=== PATIENT | male | born 1940 | race Caucasian/White ===

== ENCOUNTER 2019-12-24 12:38 | Inpatient (IN) | payer MEDICARE, OTHER ==
[~2019-12-24] VITALS: Ht 185.4 cm; Wt 122.1 kg
[2019-12-24] MEDS ORDERED: FUROSEMIDE 40 MG/4 ML VIAL IV ONE (13:00)
[2019-12-24 13:44] LABS: Basophils # (auto) 0 10 ^3/uL (0-0.2); Basophils % (auto) 0.4 % (0.0-2.0); Eosinophils # (auto) 0 10 ^3/uL (0-0.8); Eosinophils % (auto) 0.5 % (0.0-7.0); Hematocrit 33.2 % (41.0-53.0); Hemoglobin 10.8 g/dL (13.5-17.5); Lymphocytes % (auto) 10.5 % (10.0-50.0); Mean Corpuscular Hemoglobin 28.8 pg (28.0-32.0); Mean Corpuscular Hgb Conc. 32.6 g/dL (32.0-36.0); Mean Corpuscular Volume 88.2 fL (80.0-100.0); Monocytes # (auto) 0.4 10 ^3/uL (0-1.3); Monocytes % (auto) 4.4 % (0.0-12.0); Neutrophils # (auto) 7.9 10 ^3/uL (1.6-8.6); Neutrophils % (auto) 84.2 % (37.0-80.0); Platelet Count (auto) 267 10^3/uL (140-450); Red Blood Cells 3.77 10^6/uL (4.5-5.90); Red Cell Distribution Width 19.5 % (11.8-14.3); White Blood Cell 9.4 10^3/uL (4.4-10.8)
[2019-12-24 13:59] LABS: INR 1.03 (0.9-1.15); Partial Thromboplastin Time 28.6 sec (23.0-31.2)
[2019-12-24 14:48] LABS: Albumin 3.4 g/dL (3.4-5.0); Anion Gap 7 (5-15); Blood Urea Nitrogen 29 mg/dL (7-18); Calcium 8.8 mg/dL (8.5-10.1); Carbon Dioxide 31 mmol/L (21-32); Chloride 101 mmol/L (98-107); Glucose 136 mg/dL (74-106); Magnesium 2.9 mg/dL (1.6-2.6); Potassium 4.7 mmol/L (3.5-5.1); Sodium 139 mmol/L (136-145)
[2019-12-24 14:55] LABS: Alanine Aminotransferase 12 U/L (16-61); Alkaline Phosphatase 54 U/L (45-117); Aspartate Aminotransferase 11 U/L (15-37); BUN/Creatinine Ratio 23.8; Bilirubin, Total 0.5 mg/dL (0.2-1.0); GFR African American 74 mL/min; GFR Non-African American 61 mL/min; Total Protein 6.8 g/dL (6.4-8.2)
[2019-12-24 16:06] LABS: Urine Bacteria FEW /hpf (None Seen); Urine Blood Negative /uL (Negative); Urine Hyaline Cast FEW /lpf (0 - 2); Urine WBC 170 /hpf (0 - 3); Urine WBC Clumps PRESENT /hpf (None Seen)
[2019-12-24] MEDS: ACCU-CHEK COMFORT CURVE STRIP VI SCH ×2 (17:00→21:45)
[2019-12-24] MEDS ORDERED: NITROGLYCERIN 0.4 MG SL TAB SL PRN (17:00)
[2019-12-24] MEDS ORDERED: DEXTROSE (50%) 50ML SYRG IV PRN (17:00)
[2019-12-24] MEDS: InsuLIN REG 1unit/0.01ml Soln (100units/ml) SC SCH ×2 (17:00→22:10)
[2019-12-24] MEDS ORDERED: MORPHINE SULF INJ 2 MG/ML SYRINGE 1ML IV PRN (17:00)
[2019-12-24] MEDS ORDERED: FUROSEMIDE 100 MG/10ML VIAL IV SCH (18:00)
--- NOTE | 2019-12-24 19:30 | NUR ---
Spoke to MD Mauricio (administration manager for [facility]ER[facility]) regarding patient not having diet order. forwarded to MD Mcqueen, MD Mcqueen advised is not on at this time and to call MD Mauricio. Spoke to MD Mauricio and she provided new order: cardiac diet now and NPO after midnight, read back and confirmed with MD Mauricio. Addendum: 12/25/19 at 0145 by Nuno Lange RN Per Hang, patient is NPO for possible cardiac procedure.
--- NOTE | 2019-12-24 19:45 | NUR ---
Telemetry admit from ER PIPPAMIRIAM admitted to Telemetry unit after SBAR received from Kika KELLER. Patient oriented to Nuno quintanilla RN, central unit, 222 room, B bed, and unit policies regarding patient care and visiting hours. Patient now on continuous telemetry monitoring, tele box #30 and telemetry reading on arrival to unit is sinus rhythm. Patient placed on bedside oxygen, weighed by bedscale and encouraged to call if they need something. All questions and concerns addressed, patient verbalized understanding.
[2019-12-24] MEDS ORDERED: AMLO5TAB15 PO (20:45)
[2019-12-24] MEDS ORDERED: PRE1T PO (20:45)
[2019-12-24] MEDS ORDERED: GABA-339 PO (20:45)
[2019-12-24] MEDS ORDERED: FURO40TA4 PO (20:45)
[2019-12-24] MEDS ORDERED: CARV12.544 PO (20:45)
[2019-12-24] MEDS ORDERED: ALLO300T2 PO (20:45)
[2019-12-24] MEDS ORDERED: POTA10TA51 PO (20:45)
[2019-12-24] MEDS ORDERED: LORazepam 2MG/ML-1ML VIAL IV ONE (21:15)
[2019-12-24] MEDS: ALLOPURINOL 300 MG TAB PO SCH (21:31)
[2019-12-24] MEDS: GABAPENTIN 300 MG CAP PO SCH (21:32)
[2019-12-24 22:00] VITALS: BP 156/71
[2019-12-24] MEDS ORDERED: POTASSIUM CHL 20 Meq TABLET PO SCH (22:00)
[2019-12-25 05:50] VITALS: BP 130/60
[2019-12-25] MEDS: GABAPENTIN 300 MG CAP PO SCH ×3 (06:00→20:57)
[2019-12-25] MEDS: InsuLIN REG 1unit/0.01ml Soln (100units/ml) SC SCH ×4 (06:33→21:36)
[2019-12-25] MEDS: ACCU-CHEK COMFORT CURVE STRIP VI SCH ×4 (06:33→21:36)
[2019-12-25] MEDS: predniSONE 1 MG TAB PO SCH (06:35)
[2019-12-25 06:36] LABS: Basophils # (auto) 0 10 ^3/uL (0-0.2); Basophils % (auto) 0.5 % (0.0-2.0); Eosinophils # (auto) 0.1 10 ^3/uL (0-0.8); Eosinophils % (auto) 1.3 % (0.0-7.0); Hematocrit 30.5 % (41.0-53.0); Hemoglobin 9.9 g/dL (13.5-17.5); Lymphocytes # (auto) 1.4 10 ^3/uL (0.4-5.4); Mean Corpuscular Hemoglobin 28.6 pg (28.0-32.0); Mean Corpuscular Hgb Conc. 32.4 g/dL (32.0-36.0); Mean Corpuscular Volume 88.2 fL (80.0-100.0); Monocytes # (auto) 0.7 10 ^3/uL (0-1.3); Monocytes % (auto) 8.9 % (0.0-12.0); Neutrophils # (auto) 5.8 10 ^3/uL (1.6-8.6); Neutrophils % (auto) 72.3 % (37.0-80.0); Platelet Count (auto) 249 10^3/uL (140-450); Red Blood Cells 3.45 10^6/uL (4.5-5.90); Red Cell Distribution Width 19.3 % (11.8-14.3)
--- NOTE | 2019-12-25 07:43 | NUR ---
Opening Shift Note Assumed patient care from NOC RN, Nuno. Patient currently sitting up in bed, no signs of distress this time. Will continue to monitor q1hr and PRN.
--- NOTE | 2019-12-25 07:52 | NUR ---
provided report to day rn. patient is resting in bed with no signs of distress at this time.
--- NOTE | 2019-12-25 08:34 | NUR ---
at Bedside Dr. Castro at bedside, new orders received. Addendum: 12/25/19 at 1434 by SHAN SANCHEZ RN RN Per Dr. Castro: per Dr. Galan, no Lasix at this time
--- NOTE | 2019-12-25 08:54 | NUR ---
Left Message for Left message for Dr. Castro regarding patient's CT scan. Patient states "I don't do good with the machine if you don't give me something for anxiety." Patient currently refusing unless he receives medication. Addendum: 12/25/19 at 0900 by SHAN SANCHEZ RN RN Message left with Patient ( answering service).
[2019-12-25 09:07] VITALS: BP 159/62
--- NOTE | 2019-12-25 09:11 | NUR ---
Called Received return call from Dr. Castro. New orders received.
[2019-12-25] MEDS ORDERED: LORazepam 2MG/ML-1ML VIAL IV ONE (09:15)
[2019-12-25] MEDS: ALLOPURINOL 300 MG TAB PO SCH ×2 (11:05→20:57)
[2019-12-25] MEDS: amLODIPine BESYLATE 5 MG TAB PO SCH (11:05)
[2019-12-25] MEDS: CARVEDILOL 12.5 MG TAB PO SCH ×2 (11:05→20:58)
--- NOTE | 2019-12-25 11:25 | NUR ---
WOUND CARE NOTE: Wound care in to see patient per wound care request regarding multiple skin integrity issue that are noted present on admission. Bedside nurse took photograph of patient's wounds/skin issue upon admission for reference. Patient is 79 years old male with admitting diagnosis of CHF and Pericardial Effusion. Patient is resting in bed in Rm. 222B. He's awake, alert and oriented. He's in no stated pain at this time. Patient is able to assist in turning and repositioning. His Shayne score is 16. Skin/wound assessment done with the assistance of patient's nurse, ARIANNA Velasquez. Noted patient's BLE are edematous and erythremic with blistering, no open draining wound noted, left open to air. 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 Multi dry, small intact scabs noted on his Rt foot toes. Yellow hyperkeratotic skin noted on his distal Rt great toe, no drainage/odor noted, left open to air. 0.5x0.5cm open partial thickness wound noted on patient's L lower buttocks. Rt sacral area has 1x0.8cm intact serum filled blisters. L lower buttock and R sacral wounds are consistent with Stage2 pressure injury. Xi wound is bright red and non-blanchable. Xi care given, applied Z Guard cream and covered wounds with Opti foam gentle dressing. Repositioned patient for comfort facing his Rt side, redistributed pressure points with pillows. Patient tolerated well. ARIANNA Velasquez at bedside. RECOMMENDATION: Nursing to continue with BID/PRN cleaning and application of Z Guard cream to sacral/buttocks per MD order,Dietary consult, frequent turning and repositioning schedule as condition permits, redistribute pressure points with pillows, elevate edematous BLE on pillows, continue monitoring by wound care while patient is hospitalized. Addendum: 12/25/19 at 1636 by Sarah Barclay RN Amended: Links added.
--- NOTE | 2019-12-25 12:42 | NUR ---
Nutrition Consult/Assessment Note please see attached link for complete assessment [employer] needs ABW [id number] kcals (23-25 kcal/kgABW), Est Protein needs:100-120 gms/day (1.0-1.2 gm/kgABW r/t wounds) Will continue to monitor and reassess prn. Addendum: 12/25/19 at [address] Amended: Links added.
[2019-12-25 13:00] VITALS: BP 156/61
--- NOTE | 2019-12-25 15:05 | NUR ---
at Bedside Dr. Mcqueen at bedside discussing patient's plan of care. Patient verbalized understanding. Addendum: 12/25/19 at 1817 by SHAN SANCHEZ RN RN Per , estrellita Lasix at this time, no blood thinners. aware of patient blood pressure, no new orders at this time.
--- NOTE | 2019-12-25 15:14 | NUR ---
MD Called Per Dr. Huang request, left message with Dr. Castro regarding patient care. Per Dr. Huang, find out if Dr. Castro will continue to assume patient care. Per Dr. Castro, will speak with [facility] and call back with answer.
[2019-12-25 15:27] LABS: Albumin 3.1 g/dL (3.4-5.0); BUN/Creatinine Ratio 25.2; Calcium 8.8 mg/dL (8.5-10.1); Potassium 3.9 mmol/L (3.5-5.1)
[2019-12-25 15:30] LABS: Bilirubin, Total 0.4 mg/dL (0.2-1.0); Total Protein 6.3 g/dL (6.4-8.2)
--- NOTE | 2019-12-25 15:30 | NUR ---
Patient's Cardio Patient obtained name of primary practicing dermatologist. Per patient, he is a patient of Dr. Mcdonald.
--- NOTE | 2019-12-25 15:34 | NUR ---
at Bedside Dr. Huang at bedside discussing plan of care with patient.
[2019-12-25 17:00] VITALS: BP 154/62
--- NOTE | 2019-12-25 18:02 | NUR ---
Called Received call from Dr. Mcdonald. Per , will see patient 12/25 in AM.
--- NOTE | 2019-12-25 18:34 | NUR ---
Called technical publications writer Per Patient request, spoke with technical publications writer. Patient would like to speak with islam technical publications writer. PBX paged, connected with Roe. Per Roe, will see patient on 12/25 in AM.
[2019-12-25 20:00] VITALS: BP 156/61
[2019-12-25 22:00] VITALS: BP 148/72
[2019-12-26 05:00] VITALS: BP 150/66
[2019-12-26 06:07] LABS: Basophils # (auto) 0 10 ^3/uL (0-0.2); Basophils % (auto) 0.6 % (0.0-2.0); Eosinophils # (auto) 0.1 10 ^3/uL (0-0.8); Eosinophils % (auto) 1.4 % (0.0-7.0); Hemoglobin 10.1 g/dL (13.5-17.5); Lymphocytes # (auto) 1.3 10 ^3/uL (0.4-5.4); Lymphocytes % (auto) 14.8 % (10.0-50.0); Mean Corpuscular Hemoglobin 28.6 pg (28.0-32.0); Mean Corpuscular Hgb Conc. 32.5 g/dL (32.0-36.0); Mean Corpuscular Volume 87.9 fL (80.0-100.0); Monocytes # (auto) 0.9 10 ^3/uL (0-1.3); Monocytes % (auto) 10.1 % (0.0-12.0); Neutrophils # (auto) 6.3 10 ^3/uL (1.6-8.6); Neutrophils % (auto) 73.1 % (37.0-80.0); Platelet Count (auto) 255 10^3/uL (140-450); Red Blood Cells 3.53 10^6/uL (4.5-5.90); White Blood Cell 8.6 10^3/uL (4.4-10.8)
[2019-12-26 06:24] LABS: Albumin 3.2 g/dL (3.4-5.0); Calcium 8.8 mg/dL (8.5-10.1)
[2019-12-26 06:28] LABS: BUN/Creatinine Ratio 25.5; Bilirubin, Total 0.6 mg/dL (0.2-1.0); Total Protein 6.5 g/dL (6.4-8.2)
[2019-12-26] MEDS: InsuLIN REG 1unit/0.01ml Soln (100units/ml) SC SCH ×4 (06:32→21:35)
[2019-12-26] MEDS: ACCU-CHEK COMFORT CURVE STRIP VI SCH ×4 (06:33→21:32)
[2019-12-26] MEDS: GABAPENTIN 300 MG CAP PO SCH ×3 (06:39→21:30)
[2019-12-26] MEDS: predniSONE 1 MG TAB PO SCH (06:39)
--- NOTE | 2019-12-26 07:00 | NUR ---
PT RESTED WELL THROUGHOUT THE NIGHT WITH NO C/O PAIN. WILL CONTINUE TO MONITOR.
[2019-12-26 09:00] VITALS: BP 146/65
[2019-12-26] MEDS: CARVEDILOL 12.5 MG TAB PO SCH ×2 (09:45→21:30)
[2019-12-26] MEDS: amLODIPine BESYLATE 5 MG TAB PO SCH (09:45)
[2019-12-26] MEDS: ALLOPURINOL 300 MG TAB PO SCH ×2 (09:46→21:29)
[2019-12-26 13:00] VITALS: BP 141/65
--- NOTE | 2019-12-26 13:25 | NUR ---
at Bedside Dr. Hernandez at bedside discussing plan of care with patient. New order received. Addendum: 12/26/19 at 1727 by SHAN SANCHEZ RN RN Per Dr. Angel Luis Hamilton phone number is [phone]
--- NOTE | 2019-12-26 13:30 | NUR ---
EKG Obtained [address] Hernandez request. Reviewed by Dr. Hernandez and placed in chart.
--- NOTE | 2019-12-26 14:15 | NUR ---
Dressing Change Cleansed sacral area per wound care recommendation. Z gaurd applied, optifoam placed; patient repositioned on right side, HOB in high fowlers position. Safety precautions in place. Will continue to monitor q1hr and PRN; call light within reach.
--- NOTE | 2019-12-26 14:26 | NUR ---
Physician Office Assistant Finance Professional Paged.
--- NOTE | 2019-12-26 14:29 | NUR ---
SS Called Spoke with Rn Spine, Raymundo. Per Raymundo will work on transfer order.
--- NOTE | 2019-12-26 15:00 | NUR ---
Family Spoke with patient's family regarding plan of care. Per patient and patient's , son, Mika to be notified for future updates: [phone].
--- NOTE | 2019-12-26 16:43 | NUR ---
1600 12/26/19 - Faxed to [facility] at [phone] face sheet, order to transfer to higher level of care under care of Dr Jesus Carrera, H/P, labs, meds, imaging and consults. Pending review and bed availability. Addendum: 12/26/19 at 1655 by Parul Kamara RN Contacted [facility] at [phone] to placed patient on [facility] "will call" list.
--- NOTE | 2019-12-26 16:44 | NUR ---
SS Received call from Parul; per Parul, obtain covid swab for transfer.
--- NOTE | 2019-12-26 16:58 | NUR ---
MD Called Received return call from Dr. Huang regarding patient's anxiety. New orders received.
[2019-12-26 17:00] VITALS: BP 139/61
[2019-12-26] MEDS ORDERED: LORazepam 0.5 MG TAB PO PRN (17:00)
--- NOTE | 2019-12-26 17:24 | NUR ---
Covid Swab Obtained covid swab from patient. Patient tolerated well, no signs of distress at this time. Respirations even and unlabored, sitting at edge of bed with feet dangling. Addendum: 12/26/19 at 1726 by SHAN SANCHEZ RN RN Covid swab delivered to lab and checked in with sleep lab technician.
--- NOTE | 2019-12-26 17:34 | NUR ---
6166 12/26/19 - Contacted by telehealth case manager Arlene at [facility] patient has been assigned bed 159-C in [facility] number to call report is [phone]. Informed Nurse Eva of all info stated above.
--- NOTE | 2019-12-26 18:30 | NUR ---
POM Patient medication collected from Pharmacy.
[2019-12-26 18:40] VITALS: BP 139/61
--- NOTE | 2019-12-26 18:48 | NUR ---
Family Son, Mika, notified of patient transfer status. All questions answered.
--- NOTE | 2019-12-26 18:54 | NUR ---
[facility] Called [facility]. Patient pickle pumper time [id number].
--- NOTE | 2019-12-26 18:55 | NUR ---
Report Attempted to give report to [facility] Rn, asked to call back. Will endorse to manhole builder.
--- NOTE | 2019-12-26 19:00 | NUR ---
Opening Shift Note Assumed care of patient from day shift RN, awake and alert and oriented x4. No S/S of distress/SOB or pain. Instructed on POC and to call for assist PRN, safety measures in place call light with in reach, side rails up x2 and bed in lowest position. will continue to monitor for changes Q1hr and PRN.
--- NOTE | 2019-12-26 19:43 | NUR ---
Closing Note Endorsed Care to NOC Emmy KELLER. RN aware of patient discharge status.
--- NOTE | 2019-12-26 22:00 | NUR ---
Called [facility] gave report to Ric KELLER at facility.
--- NOTE | 2019-12-26 23:20 | NUR ---
[facility] came to transport patient to [facility].Pt being trans to another hosp Order obtained for transfer of MIRIAM DAS to Doctor Angel Luis Carrera. Report called/given to Ric KELLER. Report given to EMS transport team. Medication reconciliation form completed and copy given to patient. Transported via gurney along with copied chart and imaging films/disk and all personal belongings. No distress noted on time of departure. Family notified of destination and room number, verbalized understanding.
== END 2019-12-26 23:20 | disposition short-term general hospital (02) | DRG 314 ==
LOC: ER 12:38 → TELE-CENTR 12:39
PROVIDERS: ADMIT Internal Medicine; ATTEND Internal Medicine
DX: I31.3 Pericardial effusion (noninflammatory) (principal); J96.20 Acute and chronic respiratory failure, unspecified whether with hypoxia or hypercapnia; I50.33 Acute on chronic diastolic (congestive) heart failure; E44.1 Mild protein-calorie malnutrition; I11.0 Hypertensive heart disease with heart failure; Z20.828 Contact with and (suspected) exposure to other viral communicable diseases; I25.10 Atherosclerotic heart disease of native coronary artery without angina pectoris; Z99.81 Dependence on supplemental oxygen; D63.8 Anemia in other chronic diseases classified elsewhere; E11.51 Type 2 diabetes mellitus with diabetic peripheral angiopathy without gangrene; E66.01 Morbid (severe) obesity due to excess calories; Z88.6 Allergy status to analgesic agent; Z68.35 Body mass index [BMI] 35.0-35.9, adult; Z79.899 Other long term (current) drug therapy; Z79.52 Long term (current) use of systemic steroids; R60.1 Generalized edema
CPT/HCPCS: 36415; 51702; 71045; 71250; 74176; 80053; 81001; 82962; 83735; 83880; 84443; 84484; 85025; 85610; 85730; 93306; 96374; 96376; 99291; G0378; J1815